=== PATIENT | female | born 1960 ===

== ENCOUNTER → 2017-03-13 | Outpatient (CLI) | payer BC | END | disposition home or self-care (01) | LOC: C.PATHSPEC 12:54 | PROVIDERS: ATTEND Family Medicine | DX: L82.0 Inflamed seborrheic keratosis (principal) ==

== ENCOUNTER → 2017-10-10 | Outpatient (CLI) | payer BC | END | disposition home or self-care (01) | LOC: C.LABMFLN 15:31 | PROVIDERS: ATTEND Family Medicine | DX: E78.5 Hyperlipidemia, unspecified (principal) ==